=== PATIENT | male | born 1950 | race Caucasian/White ===

== ENCOUNTER 2016-09-18 06:29 | Observation (INO) | payer MEDICARE, OTHER ==
--- NOTE | ~2016-09-18 | CN ---
Consultation Report [facility] [address] [place]. [address] NAME: NINI THOMSON : 50 STATUS : ADM Severiano PAT#: [id number] AGE: 66 ADM/REG DATE : 09/18/16 MR#: [id number] REPORT SERV DATE: 09/18/16 DICTATED BY: JITENDRA DE GUZMAN DATE: 09/18/16 REPORT STATUS : Draft TRANSCRIBED BY: MODL DATE: 09/18/16 NEPHROLOGY CONSULT DATE OF CONSULTATION: HISTORY OF PRESENT ILLNESS: Mr. Thomson is a 66-year-old white male, with history of chronic kidney disease stage 3, status post occluded left renal artery stenosis, and stent placed in 2013, with an atrophic left kidney, and now at 95% stenosis of his right renal artery, which was stented today by Dr. Daniel. 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 As mentioned above, Dr. Cha follows his hyperlipidemia, hypertension, and primary issues. Dr. Ronald Daniel follows him for abnormal cardiac history and atherosclerotic cardiovascular disease. The patient is seen in the short-stay unit after right renal artery stenting. PHYSICAL EXAMINATION: VITAL SIGNS: Blood pressure 186/91, heart rate of 69, respirations 21, and temperature 97.8. GENERAL: Alert, cooperative, and in no acute distress. HEENT: Unremarkable. LUNGS: Clear. CARDIOVASCULAR: Without rub. ABDOMEN: Soft and benign. Bowel sounds are present. No bruits. EXTREMITIES: 1+ pedal edema on the left, not on the right. Good pulses. LABORATORY DATA: Lab work shows a sodium of 141, potassium 4.0, chloride 108, CO2 of 22, BUN of 22, creatinine 1.44. Normal liver enzymes. White count 8.0, hemoglobin 14, hematocrit 41, and platelet count 134,000. SOCIAL HISTORY: . No tobacco recently, but did smoke heavily in the past. HOME MEDICATIONS: Lisinopril ACT which was stopped recently, allopurinol 300 mg at bedtime, amlodipine 5 mg twice a day recently increased from once a day, aspirin 81 mg at bedtime, and pravastatin 20 mg at bedtime, and today he was started back on Plavix 75 mg daily. ALLERGIES: HE HAS NO KNOWN DRUG ALLERGIES. REVIEW OF SYSTEMS: Unremarkable except for hypertension and some edema in his left lower leg after increasing his dose of amlodipine. Consultation Report [facility] [id number] [place]. [address] NAME: NINI THOMSON : 50 STATUS : ADM Severiano PAT#: [id number] AGE: 66 ADM/REG DATE : 09/18/16 MR#: [id number] REPORT SERV DATE: 09/18/16 DICTATED BY: JITENDRA DE GUZMAN DATE: 09/18/16 REPORT STATUS : Draft TRANSCRIBED BY: RINA DATE: 09/18/16 FAMILY HISTORY: Noncontributory. ASSESSMENT: 1. Atrophic left kidney, after stenting in 2013, now with complete occlusion of that right renal artery, and recently documented 95% stenosis of the right renal artery, stented today. 2. Chronic kidney disease stage III, baseline creatinine 1.44. 50 mL/minute clearance. 3. Hyperlipidemia on statin. 4. Tobacco use in the past. Advised and counseled against it by both Dr. Cha and Dr. Daniel and is currently off tobacco. 5. Hypertension, stopped his EDDIE inhibitor and hydrochlorothiazide, on amlodipine, and adding Coreg. 6. Proteinuria, 100 mg percent by urinalysis. We will repeat today. 7. History of gout, controlled with allopurinol. PLAN: We will check creatinine in the a.m. Plan to follow in the office after discharge. KRISTA/RINA Jitendra De Guzman M.D. / [id number] CC: Cherelle Ramirez M.D.
--- NOTE | ~2016-09-18 | OP ---
Record Of Operation [facility] [address] [place]. [address] NAME: NINI MURPHY : 50 STATUS : REG REF PAT#: [id number] AGE: 66 ADM/REG DATE : 09/18/16 MR#: [id number] REPORT SERV DATE: 09/18/16 DICTATED BY: CAMILO SALOMON DATE: 09/18/16 REPORT STATUS : Draft TRANSCRIBED BY: MODL DATE: 09/18/16 DATE OF PROCEDURE: 09/18/2016 REPORT TITLE: Cardiology Consultation BODY AFTER REPORT TITLE: PRIMARY GATEMAN: Camilo Salomon M.D. PROCEDURE PERFORMED: Bilateral renal angiography, angioplasty, and stenting of the right renal artery, placement of a 9 x 29 Phuong stent, successful ProGlide closure, right femoral artery. ENTERPRISE APPLICATION ANALYST: Camilo Salomon M.D. INDICATIONS FOR PROCEDURE: Renal artery stenosis status post angioplasty and stenting of the left renal artery. DICTATION ENDS HERE.... OBIE/RINA Camilo Salomon M.D. / [id number] CC: Cherelle Ramirez M.D.
--- NOTE | ~2016-09-18 | OP ---
Record Of Operation [facility] [address] [place]. [address] NAME: NINI THOMSON : 50 STATUS : REG REF PAT#: [id number] AGE: 66 ADM/REG DATE : 09/18/16 MR#: [id number] REPORT SERV DATE: 09/18/16 DICTATED BY: CAMILO SALOMON DATE: 09/18/16 REPORT STATUS : Draft TRANSCRIBED BY: MODL DATE: 09/18/16 DATE OF PROCEDURE: 09/18/2016 REPORT TITLE: Vascular Procedure BODY AFTER REPORT TITLE: REFERRING PHYSICIAN: Dr. Cha. PRIMARY SLOT OPERATIONS MANAGER: Camilo Salomon M.D. PROCEDURE PERFORMED: Bilateral renal angiography, angioplasty, and stenting of the right renal artery with placement of a 9 mm x 29 mm Phuong stent, and successful ProGlide closure of the right femoral artery. TV HOST: Camilo Salomon M.D. INDICATIONS FOR THE PROCEDURE: Renal artery stenosis status post angioplasty and stenting of the left renal artery in 2013, hypertension, chronic kidney disease, stage III, evidence of left renal occlusion with shrunken left kidney by CT angiogram, as well as severe right renal artery stenosis. TECHNIQUE: After informed consent was obtained from Mr. Thomson in this situation, he was brought to the cardiac catheterization laboratory on the morning of 09/18/2016 in the fasting state. The time-out was performed and correct patient and operative plan were confirmed. The right coronary was prepped and draped in the usual sterile fashion. The patient was given moderate IV sedation. Local anesthesia was accomplished using 1% lidocaine. Using modified Seldinger technique and a micropuncture set, a 5-S[place] Arabian sheath was placed in the right femoral artery with external arterial return. Sheath was doubly flushed and left in place. Right femoral angiogram was performed using the micro sheath, which demonstrated good stick in the common femoral artery, thought suitable for closure. Next, using a 4-S[place] Arabian size 2 catheter, selective left and right renal angiography was performed. At that time, I decided to perform angioplasty of the right renal artery. Next, the sheath was exchanged for a 6-Saudi Arabian Sylvain-2 sheath, which was doubly flushed and left in place. The patient was heparinized to an ACT of greater than 200. Using the 4-Saudi Arabian flush size-2 catheter, the right renal artery was engaged. The lesion was wired using a Schwab wire. The catheter was brought beyond the lesion site and the wire was exchanged for an exchange Osborne wire. The catheter was then withdrawn from the body and the sheath was engaged into the right renal artery origin. Next, a 5 mm x 20 mm Powerflex balloon was used and inflation was performed with improved angiographic appearance. Next, an 8 mm x 20 mm balloon and serial inflations were performed again with improved angiographic appearance. Next, a 9 mm x 29 mm Phuong stent was selected. This stent required a 7-Saudi Arabian sheath; therefore, the 6-Saudi Arabian Sylvain-2 sheath was exchanged for a 7-S[place] Arabian Sylvain-1 sheath and the 9 x 29 Phuong stent was advanced to the right renal artery lesion and carefully positioned using angiographic guidance. The stent was then deployed at 10 atmospheres with complete balloon and stent expansion. The balloon was deflated, brought back several millimeters and Record Of [place] [id number] [facility] [place]. [address] NAME: NINI THOMSON : 50 STATUS : REG REF PAT#: [id number] AGE: 66 ADM/REG DATE : 09/18/16 MR#: [id number] REPORT SERV DATE: 09/18/16 DICTATED BY: CAMILO SALOMON DATE: 09/18/16 REPORT STATUS : Draft TRANSCRIBED BY: RINA DATE: 09/18/16 postdilatation was performed at 8 atmospheres. The patient had mild discomfort with peak balloon inflation, which resolved completely with balloon deflation. Followup angiography confirmed good angiographic result. The guidewire was removed and final angiograms were performed, which demonstrated good angiographic result. There was no evidence of dissection or distal embolization. There was good placement of the stent in the proximal right renal artery and no significant residual stenosis. The catheter was then disengaged from the body over a guidewire. ProGlide closure device was used with good hemostasis. There was no bleeding and no hematoma. The patient tolerated the procedure well without apparent complication. He was then returned to his room in good condition for access management. He was pain-free at the conclusion of the procedure. RESULTS: The right renal artery was patent with approximately 90% proximal right renal artery stenosis. The right renal artery is large. There was good washout of the right kidney. The left renal artery has a stent site at its proximal portion. This is totally occluded in its proximal portion. There is RENNY grade 0 distal flow. The infrarenal abdominal aorta has a small aneurysm. ACCESS: A 7-Saudi Arabian RFA, 7-Saudi Arabian 45 cm Sylvain-1 sheath, and ProGlide closure device, right femoral artery. ESTIMATED BLOOD LOSS: Less than 25 mL. FLUOROSCOPY TIME: 16.3 minutes, mGy 1781. CONTRAST: 140 mL, nonionic. RESULTS: 1. 90% right renal artery stenosis. 2. Occluded left renal artery at prior stent site. 3. Successful angioplasty and stenting of the right renal artery from 90% pre to 0% post. RECOMMENDATIONS: 1. Aspirin and Plavix, indefinitely given the left renal artery occlusion. 2. Ultrasound followup. 3. Nephrology followup. OBIE/RINA Camilo Salomon M.D. / [id number] CC: Valeriy Cha M.D.
[~2016-09-18 06:29] MED LIST: ASAB PO; AVAP150; HYZAAR 100/25 T1 TAB PO; IRBESARTAN; IRBESARTAN PO; NORV5 PO; PLAVIX PO; PRAVAC PO; Z300 PO
[2016-09-18 07:33] LABS: BASOPHILS 0.4 %; BASOPHILS ABSOLUTE 0.03 10/3/uL (0.0-0.16); EOSINOPHILS 0.9 %; EOSINOPHILS ABSOLUTE 0.07 10/3/uL (0.0-0.53); HEMATOCRIT 41.1 % (40.0-51.0); HEMOGLOBIN 14.2 g/dL (13.6-17.8); IMMATURE GRANULOCYTES 0.3 %; IMMATURE GRANULOCYTES ABSOLUTE 0.02 10/3/uL (0.0-0.11); LYMPHOCYTES 26.4 %; LYMPHOCYTES ABSOLUTE 2.11 10/3/uL (0.67-4.30); MEAN CORPUSCULAR VOLUME 89.7 fL (80-100); MEAN PLATELET VOLUME 9.1 fL (9.2-13.0); MONOCYTES 6.3 %; NEUTROPHILS 65.7 %; NEUTROPHILS ABSOLUTE 5.25 10/3/uL (2.02-8.40); PLATELET COUNT 134 10/3/uL (150-400); RBC DISTRIBUTION WIDTH 15.8 % (12.0-16.0); RED CELL COUNT 4.58 10/6/uL (4.7-6.1)
[2016-09-18 07:39] LABS: MANUAL DIFF NO %; MEAN CORPUS HGB CONC 34.5 g/dL (32.0-36.0)
[2016-09-18 07:50] LABS: A/G RATIO 1.1 (0.7-1.9); ALBUMIN 4.2 G/DL (3.5-5.0); ALKALINE PHOSPHATASE 97 U/L (45-117); BUN (BLOOD UREA NITROGEN) 22 MG/DL (6-23); CALCIUM, SERUM 9.2 MG/DL (8.5-10.4); CHLORIDE, SERUM 108 MMOL/L (96-112); CO2 (CARBON DIOXIDE) 22 MMOL/L (24-34); CREATININE 1.44 MG/DL (0.70-1.30); GFR AFRICAN AMERICAN 58 ML/MIN (>=60); GFR NON AFRICAN AMERICAN 50 ML/MIN (>=60); GLUCOSE, SERUM 101 MG/DL (60-99); SGOT(AST) 22 U/L (5-40); SGPT(ALT) 24 U/L (5-65); SODIUM, SERUM 141 MMOL/L (135-148); TOTAL BILIRUBIN 0.7 MG/DL (0-1.2); TOTAL PROTEIN 8.2 G/DL (6.0-8.5)
[2016-09-18 19:13] LABS: ASCORBIC ACID (UR NOT ORDER) NEG (NEG); BILIRUBIN, URINE NEGATIVE (NEG); KETONE, URINE NEGATIVE (NEG); LEUKOCYTE ESTERASE(NOT OR NEG (NEG); WBC (NOT ORDERED) (RFLEX) 1 (0-5)
[2016-09-19 05:33] LABS: BASOPHILS 0.4 %; BASOPHILS ABSOLUTE 0.03 10/3/uL (0.0-0.16); EOSINOPHILS 0.9 %; EOSINOPHILS ABSOLUTE 0.07 10/3/uL (0.0-0.53); HEMATOCRIT 40.1 % (40.0-51.0); HEMOGLOBIN 13.8 g/dL (13.6-17.8); IMMATURE GRANULOCYTES 0.3 %; IMMATURE GRANULOCYTES ABSOLUTE 0.02 10/3/uL (0.0-0.11); LYMPHOCYTES 21.1 %; LYMPHOCYTES ABSOLUTE 1.62 10/3/uL (0.67-4.30); MEAN CORPUS HGB CONC 34.4 g/dL (32.0-36.0); MEAN CORPUSCULAR HEMOGLOB 30.9 pg (26.0-34.0); MEAN CORPUSCULAR VOLUME 89.9 fL (80-100); MONOCYTES 7.7 %; MONOCYTES ABSOLUTE 0.59 10/3/uL (0.21-1.20); NEUTROPHILS 69.6 %; NEUTROPHILS ABSOLUTE 5.35 10/3/uL (2.02-8.40); PLATELET COUNT 117 10/3/uL (150-400); RBC DISTRIBUTION WIDTH 15.6 % (12.0-16.0); RED CELL COUNT 4.46 10/6/uL (4.7-6.1); WHITE BLOOD CELLS 7.7 10/3/uL (4.5-10.5)
[2016-09-19 05:42] LABS: MANUAL DIFF NO %
[2016-09-19 05:47] LABS: ALBUMIN 3.9 G/DL (3.5-5.0); BUN (BLOOD UREA NITROGEN) 18 MG/DL (6-23); CALCIUM, SERUM 9.4 MG/DL (8.5-10.4); CHLORIDE, SERUM 107 MMOL/L (96-112); CO2 (CARBON DIOXIDE) 24 MMOL/L (24-34); CREATININE 1.37 MG/DL (0.70-1.30); GFR AFRICAN AMERICAN 62 ML/MIN (>=60); GFR NON AFRICAN AMERICAN 53 ML/MIN (>=60); GLUCOSE, SERUM 99 MG/DL (60-99); PHOSPHORUS, SERUM 2.4 MG/DL (2.5-4.5); POTASSIUM, SERUM 3.8 MMOL/L (3.5-5.3); SODIUM, SERUM 141 MMOL/L (135-148)
[2016-09-19 07:29] LABS: ASCORBIC ACID (UR NOT ORDER) NEG (NEG); BILIRUBIN, URINE NEGATIVE (NEG); KETONE, URINE NEGATIVE (NEG); LEUKOCYTE ESTERASE(NOT OR NEG (NEG); WBC (NOT ORDERED) (RFLEX) 1 (0-5)
[2016-09-19] MEDS ORDERED: PLAVIX PO (09:09)
[2016-09-19] MEDS ORDERED: LIPITOR40 PO (09:09)
[2016-09-19] MEDS ORDERED: COREG12 PO (09:09)
== END 2016-09-19 10:10 | disposition home or self-care (01) ==
LOC: CORLMH 06:29 → SSU1 06:38
PROVIDERS: Internal Medicine Cardiovascular Disease; Obstetrics & Gynecology
DX: I70.1 Atherosclerosis of renal artery (principal); I12.9 Hypertensive chronic kidney disease with stage 1 through stage 4 chronic kidney disease, or unspecified chronic kidney disease; N18.3 Chronic kidney disease, stage 3 (moderate); E78.2 Mixed hyperlipidemia; Z87.891 Personal history of nicotine dependence; Z79.82 Long term (current) use of aspirin; Z79.899 Other long term (current) drug therapy; Z79.02 Long term (current) use of antithrombotics/antiplatelets; R80.9 Proteinuria, unspecified
CPT/HCPCS: 36252; 37236; 80053; 80069; 81001; 83735; 85025; 85347; 99152; 99153; A9270-GY; C1725; C1760; C1769; C1876; C1894; G0378; J2250; J3010; Q9966; Q9967